=== PATIENT | female | born 1950 | race Caucasian/White ===

== ENCOUNTER 2017-01-29 12:59 | Emergency (ER) | payer BC ==
[2017-01-29 13:05] VITALS: RESP 18
--- NOTE | 2017-01-29 14:01 | ED ---
General Adult HPI - General Chief complaint: Arrhythmia/Palpitations Stated complaint: cough Time Seen by Provider: 01/29/17 13:46 Source: patient, RN notes reviewed, old records reviewed Mode of arrival: ambulatory Limitations: no limitations - History of Present Illness Initial comments: This is a 66-year-old female ER for evaluation. Patient is here for evaluation of sinus drainage, cough and congestion, upper strain infection symptoms. Patient has no history of heart disease. Patient with signs and symptoms of upper strain infection is for further evaluation she Re: Jose. Patient had x- ray and EKG at [facility] and was sent to the emergency room, still complaining of sinus drainage occasional shortness of breath, symptoms for a week. On-and-off fever otherwise sick contacts include hospitalization a family member and increased stress - Related Data Home Medications Medication Instructions Recorded Confirmed Albuterol Inhaler [Ventolin Hfa 1 puff INHALATION RT-Q6H PRN 01/29/17 01/29/17 Inhaler] Albuterol Nebulized [Ventolin 0.625 mg INHALATION RT-Q6H PRN 01/29/17 01/29/17 Nebulized] Ascorbic Acid [Vitamin C] 1,000 mg PO DAILY 01/29/17 01/29/17 Calcium Carbonate/Vitamin D3 1 tab PO DAILY 01/29/17 01/29/17 [Calcium 600-Vit D3 400 Caplet] Cholecalciferol [Vitamin D3] 1,000 unit PO DAILY 01/29/17 01/29/17 Cinnamon Bark [Cinnamon] 500 mg PO DAILY 01/29/17 01/29/17 Cranberry Extract [Cranberry] 500 mg PO DAILY 01/29/17 01/29/17 [place]-3 Fatty Acids [[place]-3] 1,000 mg PO DAILY 01/29/17 01/29/17 Thyroid,Pork [Nature-Throid] 65 mg PO BID@0800,1200 01/29/17 01/29/17 Vitamin B Complex 1 cap PO DAILY 01/29/17 01/29/17 Allergies Allergy/AdvReac Type Severity Reaction Status Date / Time codeine Allergy Rash/Hives Verified 01/29/17 13:39 Penicillins Allergy Rash/Hives Verified 01/29/17 13:39 Iodinated Contrast Media - AdvReac Itching Verified 01/29/17 13:39 Oral and Review of Systems ROS Statement: Those systems with pertinent positive or pertinent negative responses have been documented in the HPI. ROS Other: All systems not noted in ROS Statement are negative. Past Medical History Past Medical History: Thyroid Disorder History of Any Multi-Drug Resistant Organisms: None Reported Past Surgical History: Section Additional Past Surgical History / Comment(s): thyroidectomy, bilateral rotator cuff Past Psychological History: No Psychological Hx Reported Smoking Status: Never smoker Past Alcohol Use History: None Reported Past Drug Use History: None Reported General Exam Limitations: no limitations General appearance: alert, in no apparent distress Head exam: Present: atraumatic, normocephalic, normal inspection Eye exam: Present: normal appearance, PERRL, EOMI. Absent: scleral icterus, conjunctival injection, periorbital swelling ENT exam: Present: normal exam, mucous membranes moist Neck exam: Present: normal inspection. Absent: tenderness, meningismus, lymphadenopathy Respiratory exam: Present: normal lung sounds bilaterally. Absent: respiratory distress, wheezes, rales, rhonchi, stridor Cardiovascular Exam: Present: regular rate, normal rhythm, normal heart sounds. Absent: systolic murmur, diastolic murmur, rubs, gallop, clicks GI/Abdominal exam: Present: soft, normal bowel sounds. Absent: distended, tenderness, guarding, rebound, rigid Extremities exam: Present: normal inspection, full ROM, normal capillary refill. Absent: tenderness, pedal edema, joint swelling, calf tenderness Back exam: Present: normal inspection Neurological exam: Present: alert, oriented X3, CN II-XII intact Psychiatric exam: Present: normal affect, normal mood Skin exam: Present: warm, dry, intact, normal color. Absent: rash Course Vital Signs 01/29/17 13:01 Temperature 98.1 F Pulse Rate 94 Respiratory 18 Rate Blood Pressure 146/86 O2 Sat by Pulse 98 Oximetry - Reevaluation(s) Reevaluation #1: 01/29/17 14:00 Patient's in no acute distress, no chest pain or shortness of breath EKG Findings - EKG Comments: EKG Findings:: EKG shows sinus rhythm rate of 95, MS-2 10, QRS 104, QTc 459 Medical Decision Making - Medical Decision Making 66 female to the emergency department for evaluation. Patient does reevaluation of cough congestion sinus drainage and sinus headache. Patient had EKG outpatient office and was sent to emergency room for reevaluation due to EKG, patient EKG here is normal, patient's complaining of upper throat infection, x-rays negative for pneumonia, patient redistributed for URI and discharged - Radiology Data Radiology results: report reviewed (CXR reviewed is negaticve for acute disease) , image reviewed Disposition Clinical Impression: Upper respiratory infection, Sinusitis Disposition: HOME SELF-CARE Condition: Good Instructions: Sinusitis (ED), Upper Respiratory Infection (ED) Referrals: Fay Bell MD [Primary Care Provider] - 1-2 days
[2017-01-29 14:30] VITALS: BP 158/94; PULSE 85; TEMP 98.4
== END 2017-01-29 14:29 | disposition home or self-care (01) ==
LOC: EC 12:59
DX: J06.9 Acute upper respiratory infection, unspecified (principal); J32.9 Chronic sinusitis, unspecified; E07.9 Disorder of thyroid, unspecified; Z88.0 Allergy status to penicillin; Z88.5 Allergy status to narcotic agent; Z91.041 Radiographic dye allergy status; Z79.899 Other long term (current) drug therapy
CPT/HCPCS: 93005; 99283

== ENCOUNTER → 2017-02-02 | Outpatient (CLI) | payer BC ==
[2017-02-02 14:24] LABS: ALT 44 U/L (9-52); AST 27 U/L (14-36); Alkaline Phosphatase 90 U/L (38-126); Anion Gap 12 mmol/L; Blood Urea Nitrogen 19 mg/dL (7-17); Calcium 10.7 mg/dL (8.4-10.2); Carbon Dioxide 33 mmol/L (22-30); Chloride 99 mmol/L (98-107); Glucose 87 mg/dL (74-99); Non-African American GFR(MDRD) >60 (>60 ml/min/1.73 sqM); Potassium 4.7 mmol/L (3.5-5.1); Sodium 144 mmol/L (137-145); Total Bilirubin 0.6 mg/dL (0.2-1.3); Total Protein 8.2 g/dL (6.3-8.2)
== END | disposition home or self-care (01) ==
LOC: LABWHC1 11:38
PROVIDERS: ATTEND Family Medicine
DX: E03.9 Hypothyroidism, unspecified (principal); E34.9 Endocrine disorder, unspecified; R73.9 Hyperglycemia, unspecified; E55.9 Vitamin D deficiency, unspecified
CPT/HCPCS: 36415; 80053; 82306; 82533; 83036; 83525; 84439; 84443; 84481

== ENCOUNTER → 2017-03-29 | Outpatient (CLI) | payer BC ==
--- NOTE | 2017-03-29 15:25 | US ---
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 Abnormal labs, pt states partial thyroidectomy in 1980, currently on thyroid meds GLAND SIZE: Right Lobe: 2.2 x 0.6 x 1.0 cm Overall Parenchyma: heterogenous Left Lobe: 2.5 x 0.6 x 1.1 cm Overall Parenchyma: heterogeneous Isthmus Thickness: 0.2 cm NODULES RIGHT: # of nodules measured on right: 1 Small indeterminate nodule lower pole= 0.4 x 0.4 x 0.2 cm LEFT: # of nodules measured on left: 1. 0.3 X 0.2 x 0.2 cm isoechoic solid nodule at the lower pole with well-defined margins; This nod ule is wider than tall and shows intranodular vascularity. Prior size: No prior ISTHMUS: # of nodules measured in the isthmus: 0 Bilateral neck scanned, small lymph nodes scattered/ Small amount of thyroid tissue present bilateral ly with small sub-centimeter nodules/ note parathyroid area scanned with no abnormality visualized IMPRESSION: Thyroid tissue appears heterogeneous but diminutive correlate for thyroiditis. Subcentimeter thyroid nodules bilaterally.
--- NOTE | 2017-03-30 17:18 | BD ---
EXAMINATION TYPE: MG DEXA axial skeleton. DATE OF EXAM: 03/29/2017 COMPARISON: NONE CLINICAL HISTORY: Height: 60 IN Weight: 166 LBS FRAX RISK QUESTIONS: Alcohol (3 or more units per day): NO Family History (Parent hip fracture): NO Glucocorticoids (More than 3mos): NO (Ex: prednisone, prednisolone, methylprednisolone, dexamethasone, and hydrocortisone). History of Fracture in Adulthood: NO Secondary Osteoporosis: 1. Type 1 Diabetes: NO 2. Hyperthyroidism: NO 3. Menopause before 45: NO 4. Malnutrition: NO 5. Chronic liver disease: NO Rheumatoid Arthritis: NO Current Tobacco Use: NO RISK FACTORS HISTORY OF: Active: YES Diet low in dairy products/other sources of calcium: YES Postmenopausal woman: AGE 58 Take estrogen and/or progesterone medications: YES How long: AGE 53 - PRESENT Adrenal Insufficiency: YES. AT AGE 53 PT TOLD BY HER ADRENALS WERE WORKING POORLY MEDICATIONS: Thyroid Medications: YES Which medication: Synthroid How Long: SINCE AGE 53 Additional Medications: CALCIUM, VIT D, SYNTHROID, ESTRODIAL, TESTOSTERONE, PROGESTERONE, EXAM MEASUREMENTS: Bone mineral densitometry was performed using the [employer] System. Bone mineral density as measured about the Lumbar spine is: ----- L1-L4(G/cm2): 1.131 T Score Values are as follows: ----- L2: -0.8 ----- L3: 0.2 ----- L4: -0.4 ----- L1-L4: -0.4 Bone mineral density BASELINE Bone mineral density about the R hip (g/cm2): 0.988 Bone mineral density about the L hip (g/cm2): 0.929 T Score values are as follows: -----R Neck: -0.4 -----L Neck: -0.8 -----R Total: 0.1 -----L Total: 0.6 Bone mineral density BASELINE Bone mineral density about the L Wrist (g/cm2): 0.659 T Score values are as follows: -----Dist. R+U: 0.0 -----Prox. R+U: -0.7 -----Radius total: -0.2 Bone mineral density BASELINE IMPRESSION: Normal (Values between +1 and -1 indicate normal bone mass). Consider repeating this study in 5 year s or sooner if there is some new clinical indication. NOTE: T-SCORE=SD OF THE YOUNG ADULT MEAN.
== END | disposition home or self-care (01) ==
LOC: RADUSWWP 14:20
PROVIDERS: ATTEND Internal Medicine
DX: E04.2 Nontoxic multinodular goiter (principal); E21.0 Primary hyperparathyroidism; E89.0 Postprocedural hypothyroidism
CPT/HCPCS: 76536; 77080; 77081

== ENCOUNTER → 2017-04-30 | Outpatient (CLI) | payer BC | LOC: LABWHC1 13:34 | PROVIDERS: ATTEND Internal Medicine | DX: E89.0 Postprocedural hypothyroidism (principal) | CPT/HCPCS: 36415; 84439; 84443 ==

== ENCOUNTER → 2017-05-13 | Outpatient (CLI) | payer BC ==
--- NOTE | 2017-05-13 18:19 | MR ---
EXAMINATION TYPE: MR lumbar spine wo con DATE OF EXAM: 05/13/2017 COMPARISON: Prior lumbar MRI 07/15/2013 HISTORY: Low back pain and rt leg pain/weakness TECHNIQUE: Multiplanar, multisequence images of the lumbar spine were acquired. L1-L2: Normal disc appearance without desiccation. No herniation, protrusion or disc bulging. No ca nal stenosis is present. Foramina are patent bilaterally. L2-L3: Normal disc appearance without desiccation. No herniation, protrusion or disc bulging. No ca nal stenosis is present. There is mild facet arthropathy. Foramina are patent bilaterally. L3-L4: Broad-based posterior disc bulge causes only slight anterior mass effect on the thecal sac. Hy pertrophic change of the ligamentum flavum causes some lateral recess encroachment. No significant ce ntral stenosis or foraminal encroachment. L4-L5: Broad-based posterior disc bulge contacts the anterior thecal sac. There is some facet arthrop athy change. No significant central stenosis or foraminal encroachment. L5-S1: No significant central stenosis. There is facet arthropathy with hypertrophy of ligamentum fla vum encroaches somewhat on the lateral recesses. Circumferential extension of endplate disc complex r esults in some foraminal encroachment greater on the left than on the right. Lumbar segments are intact. No paraspinal masses are identified. Conus medullaris has a normal appe arance. There is multilevel spondylosis with some minimal endplate discogenic marrow signal change, l oss of disc height and signal shows a similar appearance to prior exam at the intervertebral levels. There is a mild spinal curvature as on prior exam convex left centered at approximately L3. L1 shows a hemangioma as on prior exam. Schmorl's node present at the superior endplate of L4. Cortical cysts associated with the kidneys. IMPRESSION: Multilevel degenerative disc disease, facet arthropathy, foraminal encroachment is similar to prior e xam. Spinal curvature compatible with scoliosis. Additional findings above. No sizable disc herniatio n.
== END | disposition home or self-care (01) ==
LOC: RADMRIMAIN 17:18
PROVIDERS: ATTEND Family Medicine
DX: M51.16 Intervertebral disc disorders with radiculopathy, lumbar region (principal); M46.86 Other specified inflammatory spondylopathies, lumbar region; M41.86 Other forms of scoliosis, lumbar region; M24.28 Disorder of ligament, vertebrae; D18.09 Hemangioma of other sites
CPT/HCPCS: 72148

== ENCOUNTER → 2017-06-10 | Outpatient (CLI) | payer BC | LOC: CPPFTMAIN 13:29 | PROVIDERS: ATTEND Family Medicine | DX: J45.909 Unspecified asthma, uncomplicated (principal) | CPT/HCPCS: 94060; 94726; 94729 ==

== ENCOUNTER → 2017-08-03 | Outpatient (CLI) | payer BC ==
--- NOTE | 2017-08-03 14:05 | XR ---
Bilateral hips HISTORY: Chronic hip pain 2 views of both hips No comparisons Bone mineralization, joint spaces and alignment are maintained. Some hypertrophic change noted at the acetabulum on the left greater than right. No fracture or dislocation. IMPRESSION: Correlate for possible femoral acetabular impingement.
== END | disposition home or self-care (01) ==
LOC: RADXRMAIN 12:05
DX: M47.817 Spondylosis without myelopathy or radiculopathy, lumbosacral region (principal)
CPT/HCPCS: 73521

== ENCOUNTER → 2017-08-24 | Outpatient (CLI) | payer BC ==
--- NOTE | 2017-08-24 12:15 | XR ---
EXAMINATION TYPE: XR chest 2V, XR ribs LT DATE OF EXAM: 08/24/2017 COMPARISON: Left Ribs same date HISTORY: Trauma 2 weeks ago, rib pain, R 54 TECHNIQUE: Frontal and lateral views of the chest are obtained with 4 views of the left ribs. FINDINGS: There is no focal air space opacity, pleural effusion, or pneumothorax seen. The cardiac silhouette size is within normal limits. Postop change noted to the right and left shoulder, surgica l clips present in the left axillary region. The osseous structures are intact. IMPRESSION: No acute cardiopulmonary process. No displaced rib fracture is evident, bone scan could be performed for increased sensitivity as indicated
== END ==
LOC: RADXRMAIN 11:21
PROVIDERS: ATTEND Family Medicine
DX: R07.81 Pleurodynia (principal)
CPT/HCPCS: 71020

== ENCOUNTER → 2017-10-04 | Outpatient (CLI) | payer MEDICARE, BC, OTHER ==
[2017-10-04 08:54] LABS: CH 30.4; CHCM 33.8; HCT 45.3 % (34.0-46.0); HDW 2.75; HGB 15.1 gm/dL (11.4-16.0); MCH 30.3 pg (25.0-35.0); MCHC 33.4 g/dL (31.0-37.0); MCV 90.7 fL (80.0-100.0); Mean Platelet Volume 7.6; RDW 13.5 % (11.5-15.5); WBC 5.8 k/uL (3.8-10.6)
[2017-10-04 09:03] LABS: Amorphous Sediment,Urine Few /hpf; Appearance,Urine Turbid (Clear); Bilirubin,Urine Negative (Negative); Glucose,Urine (UA) Negative (Negative); Ketones,Urine Negative (Negative); Leukocyte Esterase,Urine Negative (Negative); Mucus,Urine Rare /hpf; Nitrite,Urine Negative (Negative); Particle Count 15203; Protein,Urine Negative (Negative); Specific Gravity,Urine 1.012 (1.001-1.035); Squamous Epithelial Cell,Urine 4 /hpf (0-4); UA Billing (MACRO vs. MICRO) MICRO; Urobilinogen,Urine <2.0 mg/dL (<2.0)
[2017-10-04 09:20] LABS: ALT 47 U/L (9-52); AST 24 U/L (14-36); Alkaline Phosphatase 94 U/L (38-126); Anion Gap 11 mmol/L; Blood Urea Nitrogen 15 mg/dL (7-17); C Reactive Protein 15.8 mg/L (<10.0); Calcium 10.3 mg/dL (8.4-10.2); Carbon Dioxide 32 mmol/L (22-30); Chloride 101 mmol/L (98-107); Glucose 119 mg/dL (74-99); Non-African American GFR(MDRD) >60 (>60 ml/min/1.73 sqM); Sodium 144 mmol/L (137-145); Total Bilirubin 0.6 mg/dL (0.2-1.3); Total Protein 7.1 g/dL (6.3-8.2)
[2017-10-04 10:06] LABS: Potassium 4.4 mmol/L (3.5-5.1)
[2017-10-07 17:17] LABS: Large VLDL Particle Number,NMR 4.4 nmol/L (<=2.7)
== END ==
LOC: LABWHC1 08:19
PROVIDERS: ATTEND Family Medicine
DX: E03.9 Hypothyroidism, unspecified (principal); E34.9 Endocrine disorder, unspecified; E55.9 Vitamin D deficiency, unspecified; R73.9 Hyperglycemia, unspecified
CPT/HCPCS: 36415; 80053; 81001; 82306; 82533; 82626; 82670; 83036; 83525; 83704; 84144; 84402; 84403; 84439; 84443; 84481; 85027; 86140

== ENCOUNTER → 2018-09-23 | Outpatient (CLI) | payer MEDICARE, BC ==
[2018-09-23 10:28] LABS: HCT 46.4 % (34.0-46.0); HGB 15.5 gm/dL (11.4-16.0); MCH 30.6 pg (25.0-35.0); MCHC 33.5 g/dL (31.0-37.0); MCV 91.4 fL (80.0-100.0); Platelet Count 275 k/uL (150-450); RBC 5.08 m/uL (3.80-5.40); RDW 13.1 % (11.5-15.5); WBC 4.6 k/uL (3.8-10.6)
[2018-09-23 10:56] LABS: Ionized Calcium 5.3 mg/dL (4.5-5.3)
[2018-09-23 11:07] LABS: Appearance,Urine Clear (Clear); Bilirubin,Urine Negative (Negative); Blood,Urine Negative (Negative); Color,Urine Yellow; Glucose,Urine (UA) Negative (Negative); Ketones,Urine Negative (Negative); Leukocyte Esterase,Urine Negative (Negative); Nitrite,Urine Negative (Negative); PH, Urine 5.5 (5.0-8.0); Protein,Urine Negative (Negative); Urobilinogen,Urine <2.0 mg/dL (<2.0)
[2018-09-23 17:08] LABS: Vitamin D 25 Hydroxy 69.1 ng/mL (30.0-100.0)
[2018-09-23 17:09] LABS: Progesterone <0.2 ng/mL
[2018-09-23 17:48] LABS: ALT 31 U/L (8-44); AST 27 U/L (13-35); Albumin/Globulin Ratio 2.09 (1.20-2.10); Alkaline Phosphatase 91 U/L (41-126); C Reactive Protein <0.4 mg/dL (0.0-0.8); Calcium 10.3 mg/dL (8.7-10.3); Carbon Dioxide 31.5 mmol/L (21.6-31.8); Chloride 103 mmol/L (96-109); Globulin 2.2 g/dL (2.1-3.7); Glucose 116 mg/dL (70-110); Potassium 4.2 mmol/L (3.5-5.5); Sodium 142 mmol/L (135-145); Total Bilirubin 0.6 mg/dL (0.3-1.2); Total Protein 6.8 g/dL (6.2-8.2)
[2018-09-23 18:16] LABS: Parathyroid Hormone Intact 42.6 pg/mL (14.0-72.0)
[2018-09-23 20:27] LABS: Hemoglobin A1C 5.9 % (4.0-6.0)
[2018-09-26 22:42] LABS: Testosterone, Free, LC/MS/MS 1.5 pg/mL (0.2-5.0)
== END | disposition home or self-care (01) ==
LOC: LABWHC1 09:22
PROVIDERS: ATTEND Family Medicine
DX: E03.9 Hypothyroidism, unspecified (principal); E34.9 Endocrine disorder, unspecified; E55.9 Vitamin D deficiency, unspecified; R73.9 Hyperglycemia, unspecified
CPT/HCPCS: 36415; 80053; 81003; 82040; 82306; 82330; 82533; 82626; 82670; 83036; 83525; 83704; 83970; 84144; 84270; 84403; 84439; 84443; 84481; 85027; 86140

== ENCOUNTER → 2019-07-19 | Outpatient (CLI) | payer MEDICARE, OTHER ==
[2019-07-19 17:17] LABS: T4, Free (Free Thyroxine) 1.5 ng/dL (0.80-1.80)
== END | disposition home or self-care (01) ==
LOC: LABWHC1 09:30
PROVIDERS: ATTEND Family Medicine
DX: E03.9 Hypothyroidism, unspecified (principal); E34.9 Endocrine disorder, unspecified; E55.9 Vitamin D deficiency, unspecified; R73.9 Hyperglycemia, unspecified
CPT/HCPCS: 36415; 84439; 84443; 84481

== ENCOUNTER → 2019-08-28 | Outpatient (CLI) | payer MEDICARE, OTHER ==
--- NOTE | 2019-08-28 11:53 | MR ---
EXAMINATION TYPE: MR lumbar spine wo con DATE OF EXAM: 08/28/2019 COMPARISON: 05/13/2017 HISTORY: Low back pain / Radiculopathy, pain radiates into lower rt leg TECHNIQUE: Multiplanar, multisequence images of the lumbar spine were acquired. FINDINGS: Lumbar spine vertebral bodies maintain normal vertebral body heights and alignment. Conus m edullaris is unremarkable terminating at L2. Vertebral body hemangiomas are seen at L1 and L4. T2 hyp erintense and T1 hypointense partially visualized probable renal cysts. Rudimentary disc is seen at S 1-S2. Bone marrow signal is within normal limits other than the vertebral body hemangiomas. L1-L2: Very small broad-based disc bulge is seen without spinal canal stenosis nor neural foraminal n arrowing. L2-L3: Facet arthropathy, ligamentum flavum buckling and a small broad-based disc bulge are seen resu lting in very minimal bilateral neural foraminal narrowing. No spinal canal stenosis. L3-L4: Prominent ligamentum flavum buckling and facet arthropathy are seen in combination with a broa d-based disc bulge creating mild spinal canal stenosis and mild bilateral neural foraminal narrowing. L4-L5: There is a broad-based disc bulge, facet arthropathy and ligamentum flavum buckling. Right for aminal annular tear is seen. There is bilateral neural foraminal narrowing and mild spinal canal sten osis. Spinal canal stenosis is predominantly in a transverse dimension. L5-S1: There is a left paracentral annular tear and broad-based disc bulge resulting in mild bilatera l neural foraminal narrowing. No spinal canal stenosis. IMPRESSION: 1. New annular tears are seen at L5-S1 (left paracentral) and at L4-L5 (right foraminal) however no n ew focal disc herniation is seen. 2. Multilevel degenerative disc disease of the lumbar spine has slightly progressed from 2017 with ne w mild spinal canal stenosis at L3-L4 and L4-L5 from broad-based disc bulges, ligament flavum bucklin g, and facet arthropathy.
== END | disposition home or self-care (01) ==
LOC: RADMRIMAIN 10:48
PROVIDERS: ATTEND Orthopaedic Surgery Orthopaedic Surgery of the Spine
DX: M48.061 Spinal stenosis, lumbar region without neurogenic claudication (principal); M51.16 Intervertebral disc disorders with radiculopathy, lumbar region; M46.96 Unspecified inflammatory spondylopathy, lumbar region
CPT/HCPCS: 72148

== ENCOUNTER → 2019-10-03 | Outpatient (CLI) | payer MEDICARE, OTHER ==
[2019-10-03 09:43] LABS: Amorphous Sediment,Urine Rare /hpf; Appearance,Urine Cloudy (Clear); Bilirubin,Urine Negative (Negative); Blood,Urine Negative (Negative); Color,Urine Yellow; Glucose,Urine (UA) Negative (Negative); Ketones,Urine Negative (Negative); Leukocyte Esterase,Urine Negative (Negative); Mucus,Urine Rare /hpf; Nitrite,Urine Negative (Negative); PH, Urine 7.5 (5.0-8.0); Protein,Urine Negative (Negative); Specific Gravity,Urine 1.011 (1.001-1.035); Squamous Epithelial Cell,Urine 7 /hpf (0-4); Urobilinogen,Urine <2.0 mg/dL (<2.0); WBC,Urine <1 /hpf (0-5)
[2019-10-03 09:47] LABS: HCT 44.2 % (34.0-46.0); HGB 15.1 gm/dL (11.4-16.0); MCH 31.4 pg (25.0-35.0); MCHC 34.2 g/dL (31.0-37.0); Mean Platelet Volume 7.6; Platelet Count 237 k/uL (150-450); RDW 12.5 % (11.5-15.5); WBC 4.1 k/uL (3.8-10.6)
[2019-10-03 09:57] LABS: Ionized Calcium 5.1 mg/dL (4.5-5.3)
[2019-10-03 17:06] LABS: Progesterone 2.2 ng/mL
[2019-10-03 17:10] LABS: Insulin Level 12.1 mIU/mL (3.0-25.0)
[2019-10-03 17:12] LABS: Estradiol 25.2 pg/mL
[2019-10-03 17:23] LABS: ALT 30 U/L (8-44); AST 29 U/L (13-35); Albumin/Globulin Ratio 2.15 (1.60-3.17); Alkaline Phosphatase 88 U/L (41-126); C Reactive Protein <0.4 mg/dL (0.0-0.8); Calcium 9.4 mg/dL (8.7-10.3); Carbon Dioxide 28.9 mmol/L (21.6-31.8); Chloride 106 mmol/L (96-109); Glucose 111 mg/dL (70-110); Non-African American GFR(CKD) 76.8 (60.0-200.0); Potassium 4.2 mmol/L (3.5-5.5); Sodium 143 mmol/L (135-145); Total Bilirubin 0.5 mg/dL (0.3-1.2); Total Protein 6.3 g/dL (6.2-8.2)
[2019-10-03 20:46] LABS: Hemoglobin A1C 5.6 % (4.0-6.0)
== END | disposition home or self-care (01) ==
LOC: LABWHC1 08:34
PROVIDERS: ATTEND Family Medicine
DX: E03.9 Hypothyroidism, unspecified (principal); E55.9 Vitamin D deficiency, unspecified; E34.9 Endocrine disorder, unspecified; R73.9 Hyperglycemia, unspecified
CPT/HCPCS: 36415; 80053; 81001; 82306; 82330; 82533; 82626; 82670; 83036; 83525; 83704; 83970; 84144; 84402; 84403; 84439; 84443; 84481; 85027; 86140

== ENCOUNTER → 2020-08-27 | Outpatient (CLI) | payer MEDICARE, OTHER ==
[2020-08-27 10:34] LABS: HGB 14.7 gm/dL (11.4-16.0); MCH 30.1 pg (25.0-35.0); MCHC 33.3 g/dL (31.0-37.0); MCV 90.2 fL (80.0-100.0); Mean Platelet Volume 7.1; Platelet Count 263 k/uL (150-450); RBC 4.88 m/uL (3.80-5.40); WBC 4.7 k/uL (3.8-10.6)
[2020-08-27 10:39] LABS: Appearance,Urine Clear (Clear); Bilirubin,Urine Negative (Negative); Blood,Urine Negative (Negative); Color,Urine Yellow; Glucose,Urine (UA) Negative (Negative); Hyaline Casts,Urine 1 /lpf (0-2); Ketones,Urine Negative (Negative); Leukocyte Esterase,Urine Moderate (Negative); Mucus,Urine Occasional /hpf; Nitrite,Urine Negative (Negative); Protein,Urine Negative (Negative); RBC,Urine 1 /hpf (0-5); Specific Gravity,Urine 1.018 (1.001-1.035); Squamous Epithelial Cell,Urine 1 /hpf (0-4); Urobilinogen,Urine <2.0 mg/dL (<2.0); WBC,Urine 3 /hpf (0-5)
[2020-08-27 10:48] LABS: Ionized Calcium 5.1 mg/dL (4.5-5.3)
[2020-08-27 15:13] LABS: Progesterone <0.2 ng/mL
[2020-08-27 15:54] LABS: ALT 30 U/L (8-44); AST 25 U/L (13-35); African American GFR (CKD) 103.9 (60.0-200.0); Albumin/Globulin Ratio 1.83 (1.60-3.17); Alkaline Phosphatase 90 U/L (41-126); BUN/Creat Ratio 21.43 Ratio (12.00-20.00); C Reactive Protein <0.4 mg/dL (0.0-0.8); Calcium 9.6 mg/dL (8.7-10.3); Carbon Dioxide 26.6 mmol/L (21.6-31.8); Chloride 105 mmol/L (96-109); Estradiol <11.8 pg/mL; Globulin 2.4 g/dL (1.6-3.3); Glucose 109 mg/dL (70-110); Non-African American GFR(CKD) 89.7 (60.0-200.0); Potassium 4.3 mmol/L (3.5-5.5); Sodium 140 mmol/L (135-145); Total Bilirubin 0.5 mg/dL (0.3-1.2); Total Protein 6.8 g/dL (6.2-8.2)
== END | disposition home or self-care (01) ==
LOC: LABWHC1 09:10
PROVIDERS: ATTEND Family Medicine
DX: E03.9 Hypothyroidism, unspecified (principal); E34.9 Endocrine disorder, unspecified; E55.9 Vitamin D deficiency, unspecified; R73.9 Hyperglycemia, unspecified
CPT/HCPCS: 36415; 80053; 81001; 82330; 82533; 82626; 82670; 83525; 83704; 83970; 84144; 84403; 84439; 84443; 84481; 85027; 86140

== ENCOUNTER → 2020-10-25 | Outpatient (CLI) | payer MEDICARE, OTHER ==
[2020-10-25 16:05] LABS: Estradiol 39.7 pg/mL; T4, Free (Free Thyroxine) 1.4 ng/dL (0.80-1.80)
== END | disposition home or self-care (01) ==
LOC: LABWHC1 07:49
PROVIDERS: ATTEND Family Medicine
DX: E03.9 Hypothyroidism, unspecified (principal); E34.9 Endocrine disorder, unspecified; E55.9 Vitamin D deficiency, unspecified; R73.9 Hyperglycemia, unspecified
CPT/HCPCS: 36415; 82670; 84144; 84439; 84443; 84481

== ENCOUNTER → 2021-02-25 | Outpatient (CLI) | payer MEDICARE, OTHER ==
[2021-02-25 19:47] LABS: T4, Free (Free Thyroxine) 1.2 ng/dL (0.80-1.80)
== END | disposition home or self-care (01) ==
LOC: LABWHC1 07:48
PROVIDERS: ATTEND Family Medicine
DX: E03.9 Hypothyroidism, unspecified (principal); E34.9 Endocrine disorder, unspecified; E55.9 Vitamin D deficiency, unspecified; R73.9 Hyperglycemia, unspecified
CPT/HCPCS: 36415; 84439; 84443; 84481

== ENCOUNTER → 2021-08-20 | Outpatient (CLI) | payer MEDICARE, OTHER ==
[2021-08-20 10:33] LABS: Appearance,Urine Clear (Clear); Bilirubin,Urine Negative (Negative); Blood,Urine Negative (Negative); Color,Urine Yellow; Glucose,Urine (UA) Negative (Negative); Ketones,Urine Negative (Negative); Leukocyte Esterase,Urine Negative (Negative); Nitrite,Urine Negative (Negative); PH, Urine 5.5 (5.0-8.0); Protein,Urine Negative (Negative); Specific Gravity,Urine 1.015 (1.001-1.035); Urobilinogen,Urine <2.0 mg/dL (<2.0)
[2021-08-20 17:52] LABS: HCT 45.3 % (37.2-46.3); HGB 14.8 g/dL (12.0-15.0); MCH 30.1 pg (27.0-32.0); MCHC 32.7 g/dL (32.0-37.0); MCV 92.3 fL (80.0-97.0); Mean Platelet Volume 10.5 fL (9.5-12.2); Platelet Count 269 X 10*3/uL (140-440); RBC 4.91 X 10*6/uL (4.10-5.20); RDW 12.7 % (11.5-14.5); WBC 4.96 X 10*3/uL (4.50-10.00)
[2021-08-21 01:47] LABS: ALT 34 U/L (8-44); AST 26 U/L (13-35); African American GFR (CKD) 103.2 (60.0-200.0); Albumin 4.5 g/dL (3.8-4.9); Albumin/Globulin Ratio 1.73 (1.60-3.17); Alkaline Phosphatase 77 U/L (41-126); Blood Urea Nitrogen 14.7 mg/dL (9.0-27.0); Calcium 9.3 mg/dL (8.7-10.3); Carbon Dioxide 23.7 mmol/L (21.6-31.8); Chloride 103 mmol/L (96-109); Estradiol 13.2 pg/mL; Globulin 2.6 g/dL (1.6-3.3); Glucose 109 mg/dL (70-110); Potassium 4.3 mmol/L (3.5-5.5); Sodium 139 mmol/L (135-145); Total Protein 7.1 g/dL (6.2-8.2)
[2021-08-21 01:48] LABS: Insulin Level 18.2 mIU/mL (3.0-25.0); Progesterone 0.2 ng/mL
[2021-08-21 08:42] LABS: C Reactive Protein <0.30 mg/dL (0.00-0.80)
== END | disposition home or self-care (01) ==
LOC: LABWHC1 08:42
PROVIDERS: ATTEND Family Medicine
DX: E03.9 Hypothyroidism, unspecified (principal); E34.9 Endocrine disorder, unspecified; E55.9 Vitamin D deficiency, unspecified; R73.9 Hyperglycemia, unspecified
CPT/HCPCS: 36415; 80053; 81003; 82306; 82533; 82626; 82670; 83036; 83525; 83704; 84144; 84402; 84403; 84439; 84443; 84481; 85027; 86140

== ENCOUNTER → 2022-02-26 | Outpatient (CLI) | payer MEDICARE, OTHER ==
--- NOTE | 2022-02-26 22:40 | MR ---
EXAMINATION TYPE: MR knee RT wo con DATE OF EXAM: 02/26/2022 COMPARISON: None HISTORY: Right knee pain & swelling for 3 months Multiplanar multiecho imaging of the right knee without contrast. The anterior and posterior cruciate ligaments are intact. There is mild knee joint effusion. There is mild degenerative signal changes within the medial meniscus. No evidence of significant tear. The la teral meniscus is intact. There is no evidence of a fracture. Patella is intact. There is subcutaneou s edema anterior to the patella. Patellar tendon is intact. The collateral ligaments are intact. I se e no focal bone destruction. IMPRESSION: No evidence of ligamentous tear. Knee joint effusion and anterior subcutaneous edema. No fracture marlon e seen. Degenerative signal changes within the medial meniscus without a complete tear.
== END | disposition home or self-care (01) ==
LOC: RADMRIMAIN 17:13
PROVIDERS: ATTEND Orthopaedic Surgery
DX: M17.11 Unilateral primary osteoarthritis, right knee (principal); M25.461 Effusion, right knee

== ENCOUNTER → 2022-05-01 | Outpatient (CLI) | payer MEDICARE, OTHER ==
--- NOTE | 2022-05-01 11:57 | MR ---
EXAMINATION TYPE: MR lumbar spine wo con DATE OF EXAM: 05/01/2022 COMPARISON: MR lumbar spine 08/28/2019 HISTORY: Low back pain into rt lower extremity TECHNIQUE: Multiplanar, multisequence images of the lumbar spine were acquired without IV contrast. L1-L2: Normal disc appearance without desiccation. No herniation, protrusion or disc bulging. No ca nal stenosis is present. Foramina are patent bilaterally. L2-L3: There is facet arthropathy with hypertrophy ligamentum flavum causing some minimal posterior l ateral mass effect on the thecal sac. Minimal posterior disc bulge causes only slight anterior mass e ffect on the thecal sac. No significant foraminal encroachment. L3-L4: Posterior broad-based disc bulge causes mild anterior mass effect on the thecal sac. Facet art hropathy with virtually the ligamentum flavum causes posterior lateral mass effect on the thecal sac greater from the right. No significant foraminal encroachment. L4-L5: Posterior broad-based disc bulge causes mild anterior mass effect on the thecal sac. Facet art hropathy with hypertrophy ligamentum flavum causes posterior lateral mass effect on the thecal sac si milar to prior exam. No significant foraminal encroachment. L5-S1: Facet arthropathy changes present. Hypertrophy of the ligamentum flavum causes posterior later al mass effect on the thecal sac. Posterior broad-based disc bulge may contact the proximal S1 nerve roots, anterior thecal sac. Circumferential extension endplate disc complex encroaches on the neural foramen greater than the left than on the right similar to prior exam. Lumbar segments are intact. No paraspinal masses are identified. Conus medullaris has a normal appe arance. Lumbar vertebral bodies show preserved height and alignment. There is multilevel spondylosis, endplate discogenic marrow signal change. Hemangioma again noted is superior endplate of L4, and wit hin the L1 vertebral body. No significant spinal stenosis. There is a slight spinal curvature as on p rior exam. Disc spaces show a similar appearance to prior exam, some loss of disc height signal at L4 -5 and L5-S1 greater than L3-4 consistent with disc desiccation and degenerative disc disease. Cortic al cysts are again noted associated with the right kidney. IMPRESSION: Generative disc disease and facet arthropathy similar to prior exam, there is some neural foraminal e ncroachment as described.
== END | disposition home or self-care (01) ==
LOC: RADMRIMAIN 10:27
PROVIDERS: ATTEND Physical Medicine & Rehabilitation
DX: M47.817 Spondylosis without myelopathy or radiculopathy, lumbosacral region (principal); M51.26 Other intervertebral disc displacement, lumbar region; M99.73 Connective tissue and disc stenosis of intervertebral foramina of lumbar region
CPT/HCPCS: 72148

== ENCOUNTER 2022-07-03 12:52 | Emergency (ER) | payer MEDICARE, OTHER ==
[2022-07-03 12:59] VITALS: BP 161/82; PULSE 86; RESP 16; TEMP 97.9
[2022-07-03] MEDS ORDERED: traMADol 50 MG TAB PO STA (13:31)
--- NOTE | 2022-07-03 13:46 | XR ---
EXAMINATION TYPE: XR knee complete RT DATE OF EXAM: 07/03/2022 COMPARISON: NONE HISTORY: pain TECHNIQUE: Three views are submitted. FINDINGS: Mild narrowing of the medial compartment and patellofemoral compartment joint space. Osseous structu res are intact. No acute fracture seen. IMPRESSION: 1. No acute fracture or dislocation. 2. Osteoarthritis
[2022-07-03] MEDS ORDERED: diphenhydrAMINE 25 MG CAP PO ONE (13:48)
--- NOTE | 2022-07-03 14:29 | ED ---
Lower Extremity Injury HPI - General Chief Complaint: Extremity Injury, Lower Stated Complaint: rt knee pain, injury Time Seen by Provider: 07/03/22 13:00 Source: patient, family, RN notes reviewed Mode of arrival: wheelchair Limitations: no limitations - History of Present Illness Initial Comments: This is a 71-year-old female who presents to the emergency department for a right knee injury. States that she was walking upstairs earlier today, when she twisted her knee and felt a pop on the right side. She's had difficulty putting weight on the knee since. She has not taken anything for her pain. States that she has arthritis and has a history of some sort of "tear", on the inside of the right knee several years ago. Patient requested an MRI in the emergency department. Denies any fevers, chills, sore throat, cough, dyspnea, chest pain, palpitations, abdominal pain, nausea, vomiting, diarrhea, back pain, or headaches. MD Complaint: knee injury Injury: Knee: Right Associated Symptoms: snap/pop sensation - Related Data Home Medications Medication Instructions Recorded Confirmed Albuterol Inhaler [Ventolin Hfa 1 puff INHALATION RT-Q6H PRN 01/29/17 01/29/17 Inhaler] Albuterol Nebulized [Ventolin 0.625 mg INHALATION RT-Q6H PRN 01/29/17 01/29/17 Nebulized] Ascorbic Acid [Vitamin C] 1,000 mg PO DAILY 01/29/17 01/29/17 Calcium Carbonate/Vitamin D3 1 tab PO DAILY 01/29/17 01/29/17 [Calcium 600-Vit D3 400 Caplet] Cholecalciferol [Vitamin D3] 1,000 unit PO DAILY 01/29/17 01/29/17 Cinnamon Bark [Cinnamon] 500 mg PO DAILY 01/29/17 01/29/17 Cranberry Fruit Extract [Cranberry] 500 mg PO DAILY 01/29/17 01/29/17 [place]-3 Fatty Acids [[place]-3] 1,000 mg PO DAILY 01/29/17 01/29/17 Thyroid,Pork [Nature-Throid] 65 mg PO BID@0800,1200 01/29/17 01/29/17 Vitamin B Complex 1 cap PO DAILY 01/29/17 01/29/17 Previous Rx's Medication Instructions Recorded Azithromycin [Zithromax Z-pack (6 0 mg PO DIRECTED #1 pack 01/29/17 tabs)] Cetirizine HCl/Pseudoephedrine 1 each PO BID #30 tab.er.12h 01/29/17 [Zyrtec-D Tablet] Fluticasone Propionate [Flonase 1 spray EA NOSTRIL BID #1 bottle 01/29/17 Allergy Relief] HYDROcodone/APAP 5-325MG [[place] 1 tab PO Q6HR PRN 3 Days #12 tab 07/03/22 5-325] diphenhydrAMINE [Benadryl] 25 mg PO QID PRN #15 capsule 07/03/22 Allergies Allergy/AdvReac Type Severity Reaction Status Date / Time codeine Allergy Rash/Hives Verified 07/03/22 12:59 Penicillins Allergy Rash/Hives Verified 07/03/22 12:59 Iodinated Contrast Media AdvReac Itching Verified 07/03/22 12:59 [Iodinated Contrast Media - Oral and] Review of Systems ROS Statement: Those systems with pertinent positive or pertinent negative responses have been documented in the HPI. ROS Other: All systems not noted in ROS Statement are negative. Past Medical History Past Medical History: Thyroid Disorder History of Any Multi-Drug Resistant Organisms: None Reported Past Surgical History: Section Additional Past Surgical History / Comment(s): thyroidectomy, bilateral rotator cuff Past Psychological History: No Psychological Hx Reported Past Alcohol Use History: None Reported Past Drug Use History: None Reported General Exam Limitations: no limitations General appearance: alert, in no apparent distress Head exam: Present: atraumatic, normocephalic, normal inspection Respiratory exam: Present: normal lung sounds bilaterally. Absent: respiratory distress, wheezes, rales, rhonchi, stridor Cardiovascular Exam: Present: regular rate, normal rhythm, normal heart sounds. Absent: systolic murmur, diastolic murmur, rubs, gallop, clicks Extremities exam: Present: other (No tenderness to palpation over the right patella. Mild overlying swelling. Active and passive range of motion limited by pain. Negative anterior posterior drawer test. Lynda's induces pain.) Neurological exam: Present: alert, oriented X3, CN II-XII intact Psychiatric exam: Present: normal affect, normal mood Skin exam: Present: warm, dry, intact, normal color. Absent: rash Course Vital Signs 07/03/22 12:55 Temperature 97.9 F Pulse Rate 86 Respiratory 16 Rate Blood Pressure 161/82 O2 Sat by Pulse 95 Oximetry Medical Decision Making - Medical Decision Making This is a 71-year-old female who presents to the emergency department for a right knee injury. X-ray obtained revealing no acute irregularities. Patient was given a knee immobilizer and crutches. Short-term prescription for [place] was provided along with Benadryl, as she states that she needs to take Benadryl with codeine-containing products to prevent hives. Advised she take this very sparingly and to otherwise alternate with ibuprofen and Tylenol. She was instructed to ice the knee for 15-20 minutes every 2-3 hours as well. Advised to follow-up with her orthopedic provider for further evaluation in the event she needs additional imaging, such as an MRI. Discussed that we do not order these for patients in the emergency department in this situation. Return precautions reviewed in depth, the patient is instructed to return to the emergency department with any new, worsening, or concerning symptoms. Patient verbalized understanding. This case was discussed in detail with the attending ED physician. Presentation, findings, and treatment plan discussed in detail as well. - Radiology Data Radiology results: report reviewed, image reviewed Disposition Clinical Impression: Right knee sprain Disposition: HOME SELF-CARE Instructions (If sedation given, give patient instructions): Knee Sprain (ED), Crutch Instructions (ED), Knee Pain (ED), Knee Immobilizer (ED) Additional Instructions: Return to the emergency department with any new, worsening, or concerning symptoms. Make sure you take the [place] with Benadryl. Take the [place] sparingly when your pain is the most severe and otherwise alternate with ibuprofen and Tylenol. Apply ice for 15-20 minutes every 2-3 hours. Use the knee immobilizer and crutches as needed. Follow-up with [facility]. Prescriptions: diphenhydrAMINE [Benadryl] 25 mg PO QID PRN #15 capsule PRN Reason: Allergic Reaction HYDROcodone/APAP 5-325MG [[place] 5-325] 1 tab PO Q6HR PRN 3 Days #12 tab PRN Reason: Pain Is patient prescribed a controlled substance at d/c from ED?: Yes When asked, does pt state using other controlled substances?: No If prescribed controlled substance>3 days was MAPS reviewed?: Prescribed <3 Days Referrals: None,Stated [Primary Care Provider] - 1-2 days
== END 2022-07-03 15:02 | disposition home or self-care (01) ==
LOC: EC 12:52
DX: S83.91XA Sprain of unspecified site of right knee, initial encounter (principal); Z88.5 Allergy status to narcotic agent; Z88.0 Allergy status to penicillin; Z91.041 Radiographic dye allergy status; W01.0XXA Fall on same level from slipping, tripping and stumbling without subsequent striking against object, initial encounter; Y93.01 Activity, walking, marching and hiking
CPT/HCPCS: 99283

== ENCOUNTER 2024-09-21 12:03 | Emergency (ER) | payer MEDICARE, OTHER ==
--- NOTE | 2024-09-21 12:16 | ED ---
General Adult HPI - General Chief complaint: Fall Stated complaint: Fall-head injury Time Seen by Provider: 09/21/24 12:14 Source: patient, RN notes reviewed Mode of arrival: ambulatory Limitations: no limitations - History of Present Illness Initial comments: 73-year-old female presents to the emergency department for evaluation of fall with head injury. Patient reports that this occurred last night when she slipped on ice. She fell backwards and hit her head on the cement step. She denies loss of consciousness. Denies blood thinners. She reports pain to the right side of her scalp. She denies any headache, blurry vision. - Related Data Home Medications Medication Instructions Recorded Confirmed Albuterol Inhaler [Ventolin Hfa 1 puff INHALATION RT-Q6H PRN 01/29/17 01/29/17 Inhaler] Albuterol Nebulized [Ventolin 0.625 mg INHALATION RT-Q6H PRN 01/29/17 01/29/17 Nebulized] Ascorbic Acid [Vitamin C] 1,000 mg PO DAILY 01/29/17 01/29/17 Calcium Carbonate/Vitamin D3 1 tab PO DAILY 01/29/17 01/29/17 [Calcium 600-Vit D3 400 Caplet] Cholecalciferol [Vitamin D3] 1,000 unit PO DAILY 01/29/17 01/29/17 Cinnamon Bark [Cinnamon] 500 mg PO DAILY 01/29/17 01/29/17 Cranberry Fruit Extract [Cranberry] 500 mg PO DAILY 01/29/17 01/29/17 [place]-3 Fatty Acids [[place]-3] 1,000 mg PO DAILY 01/29/17 01/29/17 Thyroid,Pork [Nature-Throid] 65 mg PO BID@0800,1200 01/29/17 01/29/17 Vitamin B Complex 1 cap PO DAILY 01/29/17 01/29/17 Previous Rx's Medication Instructions Recorded Azithromycin [Zithromax Z-pack (6 0 mg PO DIRECTED #1 pack 01/29/17 tabs)] Cetirizine HCl/Pseudoephedrine 1 each PO BID #30 tab.er.12h 01/29/17 [Zyrtec-D Tablet] Fluticasone Propionate [Flonase 1 spray EA NOSTRIL BID #1 bottle 01/29/17 Allergy Relief] HYDROcodone/APAP 5-325MG [[place] 1 tab PO Q6HR PRN 3 Days #12 tab 07/03/22 5-325] diphenhydrAMINE [Benadryl] 25 mg PO QID PRN #15 capsule 07/03/22 Allergies Allergy/AdvReac Type Severity Reaction Status Date / Time codeine Allergy Rash/Hives Verified 07/03/22 12:59 Penicillins Allergy Rash/Hives Verified 07/03/22 12:59 Iodinated Contrast Media AdvReac Itching Verified 07/03/22 12:59 [Iodinated Contrast Media - Oral and] Review of Systems ROS Statement: Those systems with pertinent positive or pertinent negative responses have been documented in the HPI. ROS Other: All systems not noted in ROS Statement are negative. Past Medical History Past Medical History: Thyroid Disorder History of Any Multi-Drug Resistant Organisms: None Reported Past Surgical History: Section Additional Past Surgical History / Comment(s): thyroidectomy, bilateral rotator cuff Past Psychological History: No Psychological Hx Reported Smoking Status: Never smoker Past Alcohol Use History: None Reported Past Drug Use History: None Reported General Exam Limitations: no limitations General appearance: alert, in no apparent distress Course Vital Signs 09/21/24 09/21/24 12:10 13:29 Temperature 97.6 F Pulse Rate 78 65 Respiratory 17 18 Rate Blood Pressure 188/101 177/81 O2 Sat by Pulse 95 97 Oximetry Medical Decision Making - Medical Decision Making Was pt. sent in by a medical professional or institution ([facility], [employer], urgent care, hospital, or senior care...) When possible be specific @ -[No] Did you speak to anyone other than the patient for history (EMS, parent, family, police, friend...)? What history was obtained from this source @ -[No] Did you review nursing and triage notes (agree or disagree)? Why? @ -[I reviewed and agree with nursing and triage notes] Were old charts reviewed (outside hosp., previous admission, EMS record, old EKG, old radiological studies, urgent care reports/EKG's, senior care records)? Report findings @ -[No old charts were reviewed] Differential Diagnosis (chest pain, altered mental status, abdominal pain women, abdominal pain men, vaginal bleeding, weakness, fever, dyspnea, syncope, headache, dizziness, GI bleed, back pain, seizure, CVA, palpatations, mental health, musculoskeletal)? @ -[not applicable] EKG interpreted by me (3pts min.). @ -[As above] X-rays interpreted by me (1pt min.). @ -[None done] CT interpreted by me (1pt min.). @ -[None done] U/S interpreted by me (1pt. min.). @ -[None done] What testing was considered but not performed or refused? (CT, X-rays, U/S, labs)? Why? @ -[None] What meds were considered but not given or refused? Why? @ -[None] Did you discuss the management of the patient with other professionals (professionals i.e. , PA, [employer], lab, RT, psych nurse, delinquency prevention social worker, innovation manager, teacher, disability liaison officer, transplant case manager)? Give summary @ -[No] Was smoking cessation discussed for >3mins.? @ -[No] Was critical care preformed (if so, how long)? @ -[No] Were there social determinants of health that impacted care today? How? (Homelessness, low income, unemployed, alcoholism, drug addiction, transportation, low edu. Level, literacy, decrease access to med. care, skilled nursing, rehab)? @ -[No] Was there de-escalation of care discussed even if they declined (Discuss DNR or withdrawal of care, Hospice)? DNR status @ -[No] What co-morbidities impacted this encounter? (DM, HTN, Smoking, COPD, CAD, Cancer, CVA, ARF, Chemo, Hep., AIDS, mental health diagnosis, sleep apnea, morbid obesity)? @ -[None] Was patient admitted / discharged? Hospital course, mention meds given and route, prescriptions, significant lab abnormalities, going to OR and other pertinent info. @ -[hospital course] Undiagnosed new problem with uncertain prognosis? @ -[No] Drug Therapy requiring intensive monitoring for toxicity (Heparin, Nitro, Insulin, Cardizem)? @ -[No] Were any procedures done? @ -[No] Diagnosis/symptom? @ -[default] Acute, or Chronic, or Acute on Chronic? @ -[default] Uncomplicated (without systemic symptoms) or Complicated (systemic symptoms)? @ -[default] Side effects of treatment? @ -[No] Exacerbation, Progression, or Severe Exacerbation? @ -[No] Poses a threat to life or bodily function? How? (Chest pain, [place], [place], pneumonia, PE, COPD, DKA, ARF, appy, cholecystitis, CVA, Diverticulitis, Homicidal, Suicidal, threat to staff... and all critical care pts) @ -[No] Disposition Clinical Impression: Fall, Head injury Disposition: HOME SELF-CARE Condition: Stable Instructions (If sedation given, give patient instructions): Fall Prevention (ED) Additional Instructions: Please follow-up with your primary care provider. Return to the emergency department for new or worsening symptoms. Is patient prescribed a controlled substance at d/c from ED?: No Referrals: Chevy Alberto MD [Primary Care Provider] - 1-2 days
--- NOTE | 2024-09-21 13:12 | CT ---
EXAMINATION TYPE: CT brain cspine wo con CT DLP: 1361 mGycm, Automated exposure control for dose reduction was used. DATE OF EXAM: 09/21/2024 1:01 PM COMPARISON: None.. CLINICAL INDICATION:Female, 73 years old with history of fall; FALL, PAIN BASE OF HEAD TECHNIQUE: Brain: Multiple axial CT images of the brain were obtained without IV contrast. Cspine: Axial CT images from the skull base to the inferior aspect of T2 we obtained without intraven ous contrast. Coronal and sagittal reformatted images were also reviewed. FINDINGS: Brain: Extra-axial spaces: No abnormal extra-axial fluid collections. Ventricular system: Within normal limits Cerebral parenchyma: No acute intraparenchymal hemorrhage or mass effect. The lovett-white junction is well differentiated. Scattered hypoattenuating areas are seen within the periventricular white matte r. Cerebellum: Unremarkable. Mass effect: No evidence of midline shift. Intracranial vasculature: Atherosclerotic calcifications of the intracranial vessels. Soft tissues: Normal. Calvarium/osseous structures: No depressed skull fracture. Paranasal sinuses and mastoid air cells: Clear. Visualized orbits: Orbital contents are intact. Cervical spine: Fracture: None. Osseous structures: Multilevel degenerative disc disease changes with endplate spurring and disc oste ophyte complex's. Degenerative changes of the C1-C2 articulation. Vertebral alignment: Within normal limits. Spinal canal/Neural Foramina: Disc osteophyte complexes at C4-C5 and C5-C6 with at least mild spinal canal stenosis. Facet joint uncovertebral joint arthropathy scattered throughout the cervical spine w ith varying degrees of neural foraminal stenosis. Fusion of the left C3-C4 facet joint. Neck soft tissues: Prevertebral soft tissues are within normal limits. Other: The airway is patent. The lung apices are clear. Left carotid bulb calcification. IMPRESSION: 1. No acute intracranial process. 2. Nonspecific white matter changes, likely secondary to chronic small vessel ischemic disease. 3. No evidence of cervical spine fracture. 4. Mild to moderate multilevel degenerative disc disease. [facility], , 09/21/2024 1:10 PM
[2024-09-21 13:30] VITALS: RESP 18
[2024-09-21 14:01] VITALS: BP 176/78; PULSE 68; TEMP 98
== END 2024-09-21 14:01 | disposition home or self-care (01) ==
LOC: EC 12:03
DX: S09.90XA Unspecified injury of head, initial encounter (principal); Z88.0 Allergy status to penicillin; Z91.041 Radiographic dye allergy status; Z88.5 Allergy status to narcotic agent; W00.0XXA Fall on same level due to ice and snow, initial encounter
CPT/HCPCS: 70450; 72125; 99283

== ENCOUNTER → 2024-10-07 | Outpatient (CLI) | payer MEDICARE, OTHER ==
--- NOTE | 2024-10-07 13:12 | XR ---
EXAMINATION TYPE: XR Hip RT and AP Pelvis DATE OF EXAM: 10/07/2024 1:07 PM COMPARISON: 08/03/2017 CLINICAL INDICATION: Female, 73 years old with history of M11.16 UNILATERAL PRIMARY OSTEOARTHRITIS, R IGHT HIP; PHH, pain TECHNIQUE: XR Hip RT and AP Pelvis; hip was examined in the frontal and lateral projections and a AP pelvis. FINDINGS: No evidence for acute process, joint dislocation or significant soft tissue swelling. Osteo phyte formation of the superior acetabulum of the hip. There is mild joint space narrowing. IMPRESSION: 1. No evidence for acute process. 2. Mild hip osteoarthrosis. [facility], , 10/07/2024 1:10 PM
== END | disposition home or self-care (01) ==
LOC: RADXRMAIN 12:36
PROVIDERS: ATTEND Orthopaedic Surgery
DX: M16.11 Unilateral primary osteoarthritis, right hip (principal)
CPT/HCPCS: 73502

== ENCOUNTER → 2025-02-20 | Outpatient (CLI) | payer MEDICARE, OTHER ==
--- NOTE | 2025-02-20 16:15 | CT ---
EXAMINATION TYPE: CT hip RT wo con DATE OF EXAM: 02/20/2025 COMPARISON: None CLINICAL INDICATION: Female, 74 years old with history of M16.11 UNI PRIMARY OA RIGHT HIP; PHH, presu rgical planning for hip replacement CT DLP: 868 mGycm Automated exposure control for dose reduction was used. FINDINGS: There is moderate osteoarthritis of the right hip where there is mild spurring of the femoral head, a few scattered subchondral cysts in the femoral head, moderate joint space narrowing and subchondral sclerosis. There is no acute fracture or dislocation. There is minimal osteoarthritic left hip. The v isualized pelvis is intact IMPRESSION: MODERATE OSTEOARTHRITIC CHANGE OF THE RIGHT HIP DESCRIBED ABOVE. [facility], , 02/20/2025 4:13 PM
== END | disposition home or self-care (01) ==
LOC: RADCTMAIN 15:17
PROVIDERS: ATTEND Orthopaedic Surgery
DX: M16.0 Bilateral primary osteoarthritis of hip (principal); M25.851 Other specified joint disorders, right hip